=== PATIENT | male | born 1965 | race Caucasian/White ===

== ENCOUNTER 2023-06-17 08:10 | Outpatient (OUT) | payer OTHER, SELFPAY ==
[2023-06-17 08:25] LABS: Basophils Absolute Auto 0.1 10^3/uL (0.0-0.1); Eosinophils Absolute Auto 0.3 10^3/uL (0.0-0.7); Eosinophils Percent Auto 4.2 % (0.9-7.0); Hematocrit 43.5 % (42.0-54.0); Hemoglobin 14.7 g/dL (14.0-18.0); Immature Granulocytes Abs Auto 0.02 10^3/uL (0.00-0.03); Immature Granulocytes Pct Auto 0.3 % (0.0-0.5); Lymphocytes Absolute Auto 1.7 10^3/uL (1.2-3.8); Lymphocytes Percent Auto 24.9 % (20.5-60.0); Mean Corpuscular HGB Conc 33.8 g/dL (29.9-35.2); Mean Corpuscular Hemoglobin 29.6 pg (25.9-34.0); Mean Corpuscular Volume 87.5 fL (80.0-94.0); Mean Platelet Volume 11.3 fL (9.5-13.5); Monocytes Absolute Auto 0.4 10^3/uL (0.3-0.8); Monocytes Percent Auto 6.3 % (1.7-12.0); Neutrophils Absolute Auto 4.3 10^3/uL (1.4-6.5); Neutrophils Percent Auto 63.3 % (43.0-75.0); Platelet Count 229 10^3/uL (150-450); Red Blood Count 4.97 10^6/uL (4.70-6.10); Red Cell Distribution Width 12.9 % (11.0-15.0); White Blood Count 6.7 10^3/uL (4.0-11.0)
[2023-06-17 08:44] LABS: Estimated Average Glucose 260 mg/dL; Glycohemoglobin A1C 10.7 % (4.5-6.2)
[2023-06-17 10:14] LABS: Prostate Specific Antigen Scrn 0.36 ng/mL (<=4.00)
[2023-06-17 10:17] LABS: Alanine Aminotransferase 82 U/L (16-63); Albumin Globulin Ratio 0.9; Albumin Level 3.7 g/dL (3.4-5.0); Alkaline Phosphatase 59 U/L (46-116); Anion Gap 16.3; Aspartate Amino Transferase 48 U/L (15-37); BUN Creatinine Ratio 20.4; Bilirubin Total 0.7 mg/dL (0.2-1.0); Calcium 9.4 mg/dL (8.5-10.1); Carbon Dioxide 21.8 mmol/L (21.0-32.0); Chloride 102 mmol/L (98-107); Chol HDL Ratio 4.6; Cholesterol 179 mg/dL (<=200); Estimated GFR (African America >60 (>=60); Estimated GFR (Non-African Ame >60 (>=60); Globulin 4.1 g/dL; Glucose 236 mg/dL (74-106); HDL Cholesterol 39 mg/dL (40-60); Potassium 4.1 mmol/L (3.5-5.1); Sodium 136 mmol/L (136-145); Total Protein 7.8 g/dL (6.4-8.2); Triglycerides 304 mg/dL (<=150); VLDL CHOLESTEROL 60.8 mg/dL
== END 2023-06-17 08:11 | disposition home or self-care (01) ==
PROVIDERS: PCP Family Medicine; Visit Provider Family Medicine
DX: Z00.00 Encounter for general adult medical examination without abnormal findings (principal); I10 Essential (primary) hypertension; E11.65 Type 2 diabetes mellitus with hyperglycemia; Z12.5 Encounter for screening for malignant neoplasm of prostate
CPT/HCPCS: 36415; 80053; 80061; 83036; 85025; G0103

== ENCOUNTER 2023-10-06 08:56 | Outpatient (OUT) | payer OTHER, SELFPAY ==
[2023-10-06 09:24] LABS: Estimated Average Glucose 189 mg/dL; Glycohemoglobin A1C 8.2 % (4.5-6.2)
== END 2023-10-06 08:57 | disposition home or self-care (01) ==
LOC: LAB 08:58
PROVIDERS: PCP Family Medicine; Visit Provider Family Medicine
DX: E11.65 Type 2 diabetes mellitus with hyperglycemia (principal)
CPT/HCPCS: 36415; 83036

== ENCOUNTER 2024-11-30 08:14 | Outpatient (OUT) | payer OTHER, SELFPAY ==
--- OUTSIDE RECORDS SUMMARY | 2024-11-30 08:17 | XMS_ITS | CCD ---
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 Role Phone Anahy Aguirre Unavailable Kevin Garcia Unavailable TIMOTHY ANAHY E Admitting Unavailable ANAHY AGUIRRE E Attending Unavailable TIMOTHY, ANAHY E Primary Care Unavailable Brain Thomas Consulting Unavailable AGUIRRE, ANAHY E Consulting Unavailable AGUIRRE, ANAHY E Admitting Unavailable AGUIRRE, ANAHY E Attending Unavailable AGUIRRE, ANAHY E Primary Care Unavailable CAROLANN SARMIENTO Admitting Unavailable CAROLANN SARMIENTO Attending Unavailable TIMOTHY, ANAHY E Primary Care Unavailable CAROLANN SARMIENTO Consulting Unavailable AGUIRRE, ANAHY E Admitting Unavailable AGUIRRE, ANAHY E Attending Unavailable AGUIRRE, ANAHY E Primary Care Unavailable AGUIRRE, ANAHY E Consulting Unavailable AGUIRRE, ANAHY E Admitting Unavailable AGUIRRE ANAHY E Attending Unavailable AGUIRRE, ANAHY E Primary Care Unavailable AGUIRRE, ANAHY E Consulting Unavailable AGUIRRE, ANAHY E Admitting Unavailable AGUIRRE ANAHY E Attending Unavailable AGUIRRE, ANAHY E Primary Care Unavailable AGUIRRE, ANAHY E Consulting Unavailable Medications Current Medications Medication Drug Class(es) Dates Sig (Normalized) Sig (Original) 0.25 MG, 0.5 MG Dose 3 ML semaglutide 0.68 MG/ML Pen Injector [Ozempic] (1 source) Ozempic (0.25 or 0.5 MG/DOSE) 2 MG/3ML 0.25mg Subcutaneous weekly for 28 days Active Accu-Chek Guide - (1 source) Accu-Chek Guide - TEST ONCE A DAY for 30 Active Aspir-81 (3 sources) Aspir-81 Active losartan potassium 100 mg oral tablet (13 sources) Angiotensin 2 Receptor Shahla Start: 11-22-2024 take 1 tablet by mouth once daily Losartan 100 mg tablet Active 0 .ROUTE .COMPLEX 210 November 22, 2024 9:30am TAKE 1 TABLET BY MOUTH EVERY DAY Start: 11-20-2023 End: 11-22-2024 take 1 tablet by mouth once daily Losartan 100 mg tablet Discontinued 100 MG PO Daily November 21, 2023 9:49am November 22, 2024 9:30am Start: 05-19-2017 End: 11-20-2023 take 1 tablet by mouth once daily Losartan 50 mg Tablet Discontinued 50 MG PO daily May 19, 2017 12:00am November 20, 2023 4:53pm take 1 tablet by jami th every twenty-four hours Losartan Potassium 100 MG 1 tablet Orally Once a day for 90 days Active 24 hr metFORMIN hydrochloride 750 mg extended release oral tablet (12 sources) Biguanide Start: 11-20-2023 End: 11-21-2023 take 1 tablet by mouth twice daily Metformin 750 mg tablet extended release 24 hr Active 750 MG PO Twice daily 180 November 21, 2023 9:49am Start: 06-25-2021 End: 11-20-2023 take 1 tablet by mouth once daily Metformin 500 mg tablet extended release 24 hr Discontinued 500 MG PO Daily June 25, 2021 12:00am November 20, 2023 4:53pm take 1 tablet by jami th twice daily metFORMIN HCl ER 750 MG TAKE 1 TABLET BY MOUTH TWICE A DAY for 30 days Active take 1 tablet by jami th every twelve hours metFORMIN HCl 500 MG 1 tablet with a meal Orally twice a day Active ozempic (0.25 or 0.5 mg/dose) 2 mg/3ml solution pen-injector (1 source) inject 0.5 mg by subcutaneous injection every week Ozempic (0.25 or 0.5 MG/DOSE) 2 MG/3ML 0.5mg Subcutaneous weekly for 28 days Active Semaglutide (5 sources) Start: 11-07-2024 inject 0.5 mg by subcutaneous injection every week Semaglutide (Ozempic) 0.25 mg or 0.5 mg (2 mg/3 mL) pen injector Active 0 .ROUTE .COMPLEX November 07, 2024 10:04am ADMINISTER 0.5 MG UNDER THE SKIN EVERY WEEK Start: 08-14-2024 End: 11-07-2024 inject 0.5 mg by subcutaneous injection every week Semaglutide (Ozempic) 0.25 mg or 0.5 mg (2 mg/3 mL) pen injector Discontinued 0 .ROUTE .COMPLEX August 14, 2024 2:55pm November 07, 2024 10:04am ADMINISTER 0.5 MG UNDER THE SKIN EVERY WEEK Start: 08-14-2024 inject 0.5 mg by sub cutaneous injection every week Semaglutide (Ozempic) 0.25 mg or 0.5 mg (2 mg/3 mL) pen injector Active 0 .ROUTE .COMPLEX August 14, 2024 1:55pm ADMINISTER 0.5 MG UNDER THE SKIN EVERY WEEK Start: 02-05-2024 End: 08-14-2024 Semaglutide (Ozempic) 0.25 m g or 0.5 mg (2 mg/3 mL) pen injector Discontinued 0.5 MG SUBCUT every week 9.568 90 February 05, 2024 12:00am August 14, 2024 2:55pm Start: 02-05-2024 End: 08-14-2024 Semaglutide (Ozempic) 0.25 m g or 0.5 mg (2 mg/3 mL) pen injector Discontinued 0.5 MG SUBCUT every week 9.568 90 February 04, 2024 11:00pm August 14, 2024 1:55pm Completed/Discontinued Medications Medication Drug Class(es) Dates Sig (Normalized) Sig (Original) pantoprazole 40 mg delayed release oral tablet (14 sources) Proton Pump Inhibitor Start: 09-05-2018 End: 09-26-2024 take 1 tablet by mouth once daily Pantoprazole 40 mg tablet,delayed release (DR/EC) Discontinued 40 MG PO Daily June 25, 2021 12:00am May 30, 2024 10:24am Problems Problem Classification Problem Date Documented Da te Episodic/Chronic Diabetes mellitus with complications (11 sources) Hyperglycemia due to type 2 diabetes mellitus; Translations: [Type 2 diabetes mellitus with hyperglycemia] Chronic Diabetes mellitus without complication (6 sources) Type 2 diabetes mellitus; Translations: [Type 2 diabetes mellitus without complications] Chronic Esophageal disorders (12 sources) Gastroesophageal reflux disease; Translations: [Gastro-esophageal reflux disease without esophagitis] Chronic Comment on above: Problem List clean-u p per request of Phys. EHR Cmte Essential hypertension (14 sources) Essential hypertension; Translations: [Essential (primary) hypertension] Onset: Chronic Comment on above: Problem List clean-u p per request of Phys. EHR Cmte Nonspecific chest pain (10 sources) Chest pain; Translations: [Chest pain, unspecified] Onset: 2 Episodic Other and ill-defined heart disease (1 source) Cardiomegaly; Translations: [CARDIOMEGALY] Onset: 2 Chronic Other and unspecified benign neoplasm (6 sources) History of polyp of colon; Translations: [Personal history of colonic polyps] Episodic Other connective tissue disease (1 source) Other symptoms and signs involving the musculoskeletal system Episodic Other gastrointestinal disorders (8 sources) Dysphagia; Translations: [Dysphagia, unspecified] 08-30-2023 Episodic Comment on above: Problem List clean-u p per request of Phys. EHR Cmte Other gastrointestinal disorders (1 source) Dysphagia, unspecified; Translations: [Dysphagia, unspecified] 09-26-2024 Episodic Other nutritional; endocrine; and metabolic disorders (6 sources) Body mass index 40+ - severely obese; Translations: [Body mass index (BMI) 45.0-49.9, adult] Chronic Other screening for suspected conditions (not mental disorders or infectious disease) (13 sources) Cardiovascular stress test abnormal; Translations: [Abnormal result of other cardiovascular function study] Onset: 2 Episodic Residual codes; unclassified (6 sources) Obstructive sleep apnea syndrome; Translations: [Obstructive sleep apnea (adult) (pediatric)] Chronic Residual codes; unclassified (5 sources) Obstructive sleep apnea (adult) (pediatric); Translations: [OBSTRUCTIVE SLEEP APNEA] Onset: 3 Chronic Residual codes; unclassified (2 sources) Family history of cancer of colon; Translations: [Family history of malignant neoplasm of digestive organs] 08-30-2023 Episodic Comment on above: Problem List clean-u p per request of Phys. EHR Cmte Residual codes; unclassified (1 source) Family history of malignant neoplasm of digestive organs; Translations: [Family history of malignant neoplasm of gastrointestinal tract] 09-26-2024 Episodic Results Test Name Value Interpretation Reference Range Facility ECHOCARDIO M/2D COMPLETEon 0 04-13-2022 ECHOCARDIO M/2D COMPLETE Patient: CHARLES OSPINA Exam Date: 04/13/2022 : 1965 Gender:M Ordering : CAROLANN SARMIENTO [facility] Admission #: [id number] Family : DR ANAHY AGUIRRE M.D. Order #: [id number] CLICK HERE TO VIEW EXAM ECHOCARDIOGRAM REPORT PROCEDURE: CARDIO PULMONARY ECHOCARDIO M/2D COMP INDICATIONS: Abnormal stress test, HTN COMPARISON: None. DESCRIPTION: COMPLETE ECHOCARDIOGRAM Real-time transthoracic echocardiography with 2D, M-mode, spectral and color flow Doppler performed. QUALITY: Technical quality was limited. 70 329# 132/68 HR 73 LEFT VENTRICLE: Normal chamber size. Mild concentric left ventricular hypertrophy. Global left ventricular systolic function is normal. LV EF: Visual estimation of left ventricular ejection fraction is 55-60%. DIASTOLIC: Normal diastolic function. ATRIAL SEPTUM: LEFT ATRIUM: Normal chamber size. RIGHT ATRIUM: Normal chamber size. RIGHT VENTRICLE: Mild dilatation. Normal right ventricular systolic function. TRICUSPID VALVE: Normal mobility and thickness. No stenosis with trivial regurgitation. No evidence of pulmonary hypertension. RVSP 25 mmHg MITRAL VALVE: Normal mobility and thickness. No evidence of mitral valve stenosis. Mild mitral annular calcification. Trivial mitral regurgitation. AORTIC VALVE: Normal trileaflet appearance. No evidence of aortic valve stenosis. No aortic regurgitation. AORTIC ROOT: Normal diameter and appearance. Aortic sinuses are normal in size for BSA. Ascending aorta is normal in size. PULMONIC VALVE: Normal thickness and mobility. No stenosis. Trivial regurgitation. PERICARDIUM: No evidence of pericardial effusion. IVC: Not well visualized. PLEURA: CONCLUSION: 1. Mild concentric left ventricular hypertrophy. Normal ventricular systolic function. LVEF is 55 to 60%. 2. The right ventricle is mildly dilated with normal systolic function. 3. Normal diastolic function. 4. No significant valvular dysfunction. 5. Normal right-sided pressures. Adult Echocardiography Procedure Report Left Ventricle Left Atrium Mitral Valve Right Ventricle Aorta Aortic Valve Peak Velocity (Antegrade Flow): 1.25 m/s AoV Area (Peak Clyde): 3.54 cm2, 3.54 cm2 Peak Velocity(Antegrade Flow): 1.25 m/s Peak Gradient(Antegrade Flow): 6.24 mm[Hg] Tricuspid Valve Peak Velocity (Regurgitant Flow): 2.39 m/s Peak Velocity: 0.52 m/s Pulmonic Valve PV Max Clyde (0.6 - 0.9 m per sec): 1.10 m/s PV Max Gradient: 4.83 mm[Hg] Right Atrium Dictated by: Jose Enrique Hogan M.D. on 04/13/2022 at 16:34 Approved by: Jose Enrique Hogan M.D. on 04/13/2022 at 16:37 Normal [facility] NM STRESS/REST MULTIon 03-23 NM STRESS/REST MULTI Patient: CHARLES OSPINA Exam Date: 03/23/2022 : 1965 Gender:M Ordering : DR ANAHY AGUIRRE M.D. Admission #: [id number] Family : Order #: [id number] CLICK HERE TO VIEW EXAM RADIOLOGY REPORT PROCEDURE: RADIONUCLIDE IMAGING STRESS/REST MULTI COMPARISON: None. INDICATIONS: Chest pain TECHNIQUE: Exam Description: Stress/Rest two day protocol gated SPECT Rest Imagin.1 mCi Tc-99m Cardiolite IV on 03/23/2022 Stress Imaging 24.5 mCi Tc-99m Cardiolite IV on 03/24/2022 Exercise Protocol: Simeon Heart Rate (bpm): Rest: 90 Max: 146 PMHR: 88 Blood Pressure: Rest: 148/100 Max: 182/108 Exercise Time: Minutes: 4 Seconds: 00 Stage Reached: Stage: 2 Mets 7.0 Symptoms: Rest and peak stress ECG findings were normal and the exercise portion of the study was normal per attending physician Dr. Ramana Echevarria . For more details please see separate cardiac stress test report. FINDINGS: QUALITY OF STUDY: Excellent. PERFUSION DEFECT: LOCATION: Apical inferior. SIZE: Small (1-2 segments). SEVERITY: Moderate. TYPE: Persistent. WALL MOTION: Normal. LV SIZE: Enlarged; EDV 136 mL. TID / TCD: None; 0.9 LVEF: Abnormal. Calculated EF 52%. SUMMARY: Myocardial perfusion imaging study has ABNORMAL findings. CONCLUSION: 1. No acute or reversible ischemia. 2. Fixed perfusion defect of the apically inferior wall. 3. Left ventriculomegaly, 136 mL. 4. Low ejection fraction, 52%. 5. Normal wall motion. Dictated by: Brain Thomas M.D. on 03/24/2022 at 15:44 Approved by: Brain Thomas M.D. on 03/24/2022 at 15:52 Normal [facility] CBC AUTO DIFFon 02-11-2022 BASO # 0.1 103/ul Normal 0.0-0.1 [facility] Comment on above: Performed By: #### C BC #### [facility] [address] [place] [address] Dr. Nehemiah Dsouza Basophils/100 WBC (Bld) 0.9 % Normal 0.2-2.0 [facility] Comment on above: Performed By: #### C BC #### [facility] [address] [place] [address] Dr. Nehemiah Dsouza EO # 0.3 103/ul Normal 0.0-0.7 [facility] Comment on above: Performed By: #### C BC #### [facility] [address] [place] [address] Dr. Nehemiah Dsouza Eosinophils/100 WBC (Bld) 4.3 % Normal 0.9-7.0 [facility] Comment on above: Performed By: #### C BC #### [facility] [address] [place] [address] Dr. Nehemiah Dsouza Erythrocyte distribution width (RBC) [Ratio] 13.8 % Normal 11.0-15.0 [facility] Comment on above: Performed By: #### C BC #### [facility] [address] [place] [address] Dr. Nehemiah Dsouza Hematocrit (Bld) [Volume fraction] 46.3 % Normal 42.0-54.0 [facility] Comment on above: Performed By: #### C BC #### [facility] [address] [place] [address] Dr. Nehemiah Dsouza Hemoglobin (Bld) [Mass/Vol] 14.9 g/dL Normal 14.0-18.0 [facility] Comment on above: Performed By: #### C BC #### [facility] [address] [place] [address] Dr. Nehemiah Dsouza IG # 0.03 10e3/ul Normal 0.00-0.03 [facility] Comment on above: Performed By: #### C BC #### [facility] [address] [place] [address] Dr. Nehemiah Dsouza IG % 0.4 % Normal 0.0-0.5 [facility] Comment on above: Performed By: #### C BC #### [facility] [address] [place] [address] Dr. Nehemiah Dsouza LYMPH # 1.9 103/ul Normal 1.2-3.8 [facility] Comment on above: Performed By: #### C BC #### [facility] [address] [place] [address] Dr. Nehemiah Dsouza Lymphocytes/100 WBC (Bld) 24.3 % Normal 20.5-60.0 [facility] Comment on above: Performed By: #### C BC #### [facility] [address] [place] [address] Dr. Nehemiah Dsouza MANUAL DIFF REQ NO Normal [facility] Comment on above: Performed By: #### C BC #### [facility] [address] [place] [address] Dr. Nehemiah Dsouza MCH (RBC) [Entitic mass] 28.6 pg Normal 25.9-34.0 [facility] Comment on above: Performed By: #### C BC #### [facility] [address] [place] [address] Dr. Nehemiah Dsouza MCHC (RBC) [Mass/Vol] 32.2 g/dL Normal 29.9-35.2 [facility] Comment on above: Performed By: #### C BC #### [facility] [address] [place] [address] Dr. Nehemiah Dsouza MCV (RBC) [Entitic vol] 88.9 fL Normal 80.0-94.0 [facility] Comment on above: Performed By: #### C BC #### [facility] [address] [place] [address] Dr. Nehemiah Dsouza MONO # 0.6 103/ul Normal 0.3-0.8 [facility] Comment on above: Performed By: #### C BC #### [facility] [address] [place] [address] Dr. Nehemiah Dsouza Monocytes/100 WBC (Bld) 7.6 % Normal 1.7-12.0 [facility] Comment on above: Performed By: #### C BC #### [facility] [address] [address] [address] Nehemiah Dsouza NEUT # 5.0 103/ul Normal 1.4-6.5 [facility] Comment on above: Performed By: #### C BC #### [facility] [address] [address] [address] Nehemiah Dsouza Neutrophils/100 WBC (Bld) 62.5 % Normal 43.0-75.0 [facility] Comment on above: Performed By: #### C BC #### [facility] [address] [place] [address] Dr. Nehemiah Dsouza Platelet mean volume (Bld) [Entitic vol] 10.9 fL Normal 9.5-13.5 [facility] Comment on above: Performed By: #### C BC #### [facility] [address] [place] [address] Dr. Nehemiah Dsouza PLT 259 103/ul Normal 150-450 [facility] Comment on above: Performed By: #### C BC #### [facility] [address] [place] [address] Dr. Nehemiah Dsouza RBC 5.21 106/ul Normal 4.70-6.10 [facility] Comment on above: Performed By: #### C BC #### [facility] [address] [place] [address] Dr. Nehemiah Dsouza WBC 7.9 103/ul Normal 4.0-11.0 [facility] Comment on above: Performed By: #### C BC #### [facility] [address] [place] [address] Dr. Nehemiah Dsouza GLYCOHEMOGLOBIN A1Con 2021 ADA RECOMMENDATION SEE BELOW Normal [facility] Comment on above: Result Comment: ADA RECOMMENDED LIMIT 4.0 - 6.0 ADA THERAPEUTIC TARGET < 7.0 ACTION SUGGESTED > 7.0 Performed By: #### A 1C #### [facility] [address] [place] [address] Dr. Nehemiah Dsouza Glucose [Mass/Vol] 146 mg/dL Normal [facility] Comment on above: Performed By: #### A 1C #### [facility] [address] [address] [address] Nehemiah Dsouza HbA1c (Bld) [Mass fraction] 6.7 % Critically high 4.5-6.2 [facility] Comment on above: Performed By: #### A 1C #### [facility] [address] [place] [address] Dr. Nehemiah Dsouza LIPID PROFILEon 02-11-2022 CHOL-HDL RATIO NORM SEE BELOW Normal [facility] Comment on above: Result Comment: 3.3 - 4.4 LOW RISK 4.4 - 7.1 AVERAGE RISK 7.1 - 11.0 MODERATE RISK >11.0 HIGH RISK Performed By: #### L IPID, CMP #### [facility] [address] [place] [address] Dr. Nehemiah Dsouza Cholesterol [Mass/Vol] 173 mg/dL Normal <=200 [facility] Comment on above: Performed By: #### L IPID, CMP #### [facility] [address] [place] [address] Dr. Nehemiah Dsouza Cholesterol in HDL [Mass/Vol] 44 mg/dL Normal 40-60 [facility] Comment on above: Performed By: #### L IPID, CMP #### [facility] [address] [place] [address] Dr. Nehemiah Dsouza Cholesterol in LDL [Mass/Vol] 99.0 mg/dL Normal [facility] Comment on above: Performed By: #### L IPID, CMP #### [facility] [address] [address] [address] Nehemiah Dsouza Cholesterol.total/Ch olesterol in HDL [Mass ratio] 3.9 {ratio} Normal [facility] Comment on above: Performed By: #### L IPID, CMP #### [facility] [address] [place] [address] Dr. Nehemiah Dsouza HDL NORMAL > or = 60 mg/dl - LO W CARDIOVASCULAR RISK <40 mg/dl - HIGH CARDIOVASCULAR RISK Normal [facility] Comment on above: Performed By: #### L IPID, CMP #### [facility] [address] [place] [address] Dr. Nehemiah Dsouza LDL CALC NORMAL SEE BELOW Normal [facility] Comment on above: Result Comment: <100 mg/dl OPTIMAL 100 - 129 mg/dl NEAR OR ABOVE OPTIMAL 130 - 159 mg/dl BORDERLINE HIGH 160 - 189 mg/dl HIGH >190 mg/dl VERY HIGH Performed By: #### L IPID, CMP #### [facility] [address] [address] [address] Nehemiah Dsouza Triglyceride [Mass/Vol] 150 mg/dL Normal <=150 [facility] Comment on above: Performed By: #### L IPID, CMP #### [facility] [address] [address] [address] Nehemiah Dsouza VLDL CALC 30.0 mg/dL Normal [facility] Comment on above: Performed By: #### L IPID, CMP #### [facility] [address] [place] [address] Dr. Nehemiah Dsouza PROF 14(COMP METB)on 022 Albumin [Mass/Vol] 3.9 g/dL Normal 3.4-5.0 [facility] Comment on above: Performed By: #### L IPID, CMP #### [facility] [address] [address] [address] Nehemiah Dsouza Albumin/Globulin [Mass ratio] 1.0 {ratio} Normal [facility] Comment on above: Performed By: #### L IPID, CMP #### [facility] [address] [address] [address] Nehemiah Dsouza ALP [Catalytic activity/Vol] 58 U/L Normal 46-116 [facility] Comment on above: Performed By: #### L IPID, CMP #### [facility] [address] [address] [address] Nehemiah Dsouza ALT [Catalytic activity/Vol] 75 U/L Critically high 16-63 [facility] Comment on above: Performed By: #### L IPID, CMP #### [facility] [address] [address] [address] Nehemiah Dsouza Anion gap [Moles/Vol] 9.9 mmol/L Normal [facility] Comment on above: Performed By: #### L IPID, CMP #### [facility] [address] [address] [address] Nehemiah Dsouza AST [Catalytic activity/Vol] 38 U/L Critically high 15-37 [facility] Comment on above: Performed By: #### L IPID, CMP #### [facility] [address] [place] [address] Dr. Nehemiah Dsouza Bilirubin [Mass/Vol] 0.8 mg/dL Normal 0.2-1.0 [facility] Comment on above: Performed By: #### L IPID, CMP #### [facility] [address] [place] [address] Dr. Nehemiah Dsouza Calcium [Mass/Vol] 9.3 mg/dL Normal 8.5-10.1 [facility] Comment on above: Performed By: #### L IPID, CMP #### [facility] [address] [place] [address] Dr. Nehemiah Dsouza Chloride [Moles/Vol] 102 mmol/L Normal 98-107 [facility] Comment on above: Performed By: #### L IPID, CMP #### [facility] [address] [place] [address] Dr. Nehemiah Dsouza CO2 [Moles/Vol] 30.6 mmol/L Normal 21.0-32.0 [facility] Comment on above: Performed By: #### L IPID, CMP #### [facility] [address] [place] [address] Dr. Nehemiah Dsouza Creatinine [Mass/Vol] 1.00 mg/dL Normal 0.70-1.30 [facility] Comment on above: Performed By: #### L IPID, CMP #### [facility] [address] [place] [address] Dr. Nehemiah Dsouza EGFR-AF FIJIAN >60 Normal >=60 [facility] Comment on above: Performed By: #### L IPID, CMP #### [facility] [address] [place] [address] Dr. Nehemiah Dsouza EGFR-NON AF FIJIAN >60 Normal >=60 [facility] Comment on above: Performed By: #### L IPID, CMP #### [facility] [address] [address] [address] Nehemiah Dsouza Globulin (S) [Mass/Vol] 4.0 g/dL Normal [facility] Comment on above: Performed By: #### L IPID, CMP #### [facility] [address] [address] [address] Nehemiah Dsouza Glucose [Mass/Vol] 128 mg/dL Critically high 74-106 [facility] Comment on above: Performed By: #### L IPID, CMP #### [facility] [address] [address] [address] Nehemiah Dsouza Potassium [Moles/Vol] 4.5 mmol/L Normal 3.5-5.1 [facility] Comment on above: Performed By: #### L IPID, CMP #### [facility] [address] [place] [address] Dr. Nehemiah Dsouza Protein [Mass/Vol] 7.9 g/dL Normal 6.4-8.2 [facility] Comment on above: Performed By: #### L IPID, CMP #### [facility] [address] [address] [address] Nehemiah Dsouza Sodium [Moles/Vol] 138 mmol/L Normal 136-145 [facility] Comment on above: Performed By: #### L IPID, CMP #### [facility] [address] [address] [address] Nehemiah Dsouza Urea nitrogen [Mass/Vol] 21.0 mg/dL Critically high 7.0-18.0 [facility] Comment on above: Performed By: #### L IPID, CMP #### [facility] [address] [address] [address] Nehemiah Dsouza Urea nitrogen/Creatinine [Mass ratio] 21.0 mg/mg [place] [facility] Comment on above: Performed By: #### L IPID, CMP #### [facility] [address] [place] [address] Dr. Nehemiah Dsouza Glucose Poct Glucometerson 1 Commemt1 Glu2: Cleaned Meter Normal [facility] Comment on above: Result Comment: PERF ORMED BY: [facility] [place] [address] PATHOLOGIST DIRECTOR FACILITIES MAINTENANCE MONET TRAMMELL M.D. Performed By: #### G HALLIE #### Point of Care testing , Glucose [Mass/Vol] 165 mg/dL Normal [facility] Comment on above: Result Comment: [facility] Glucose Reference Range is dependent on time and content of last meal. Glucose of more than 200 mg/dL in a nonstressed, ambulatory subject supports the diagnosis of Diabetes Mellitus. Performed By: #### G LUPAOLA #### Point of Care testing , Baron 06-28-2021 L - -------- Specimen: [id number] Received: 06/28/21 Status: HELENA Gaytan Num: [id number] Spec Type: Surgical Subm Dr: Cameron Jarvis Jr, DO Tissues: A Colon - Polyp (DESCENDING POLYPS) Procedures: HE Stain/2, Gross/Micro L4 -------- Patient Age/Sex Location Account Attending Physician -------- Charles [facility]sp[facility] [id number] Cameron Jarvis Jr, DO -------- SPEC NUM: [id number] RECD: 06/28/21 STATUS: HELENA GAYTAN NUM: [id number] KATHY: 06/28/[address] [facility] DR: Cameron Jarvis Jr, ENTERED: 06/28/[address]: BOBBI TYPE: Surgical DEPT: S ORDERED: HE Stain/2, Gross/Micro L4 ORDERED: HE Stain/2, Gross/Micro L4 Pathological Diagnosis Descending colon, biopsy: - Tubular adenoma Clinical Information Family history of colon cancer Gross Description Received in formalin labeled with the patient's name, number and descending colon polyp biopsy are 3 hdez-pink tissue fragments, 0.4 cm each. Entirely submitted in one cassette labeled A1. (SM/JS) Microscopic Description Two glass slides with H E stained material have been examined. The microscopic findings support the above pathologic diagnosis. [id number] -------- -------- Specimen: [id number] Received: 06/28/21 Status: HELENA Gaytan Num: [id number] Spec Type: Surgical Subm Dr: Cameron Jarvis Jr, DO Tissues: A Colon - Polyp (DESCENDING POLYPS) Procedures: HE Stain/2, Gross/Micro L4 -------- Patient: NaomifedericaCharles [id number] (Continued) -------- Signed (signature on file) Monet Trammell MD 06/29/21 1239 [facility] COVID-19 Antigenon 1 COVID-19 Antigen Healthcare Worker?: N Concha Reference Conhca Reference Negative SARS-CoV+SARS-CoV-2 (COVID-19) Ag [Presence] in Respiratory specimen by Rapid immunoassay Negative for SARS Antigen by FREEMAN COVID19 Blank Space Concha Disclaimer Negative results, from patients with symptom Concha Disclaimer onset beyond five days, should be treated as Concha Disclaimer presumptive and confirmation with a molecular Concha Disclaimer assay, if necessary, for patient management, Concha Disclaimer may be performed. Negative results do not rule Concha Disclaimer out COVID-19 and should not be used as the sole Concha Disclaimer basis for treatment or patient management Concha Disclaimer decisions, including infection control decisions. Concha Disclaimer Negative results should be considered in the Concha Disclaimer context of a patient's recent exposures, history Concha Disclaimer and the presence of clinical signs and symptoms Concha Disclaimer consistent with COVID-19. COVID19 Blank Space Concha Disclaimer The Concha SARS Antigen FREEMAN does not differentiate Concha Disclaimer between SARS-CoV and SARS-CoV-2. COVID19 Blank Space Concha Disclaimer This test was developed and its performance Concha Disclaimer characteristic determined by [facility] and Concha Disclaimer validated at [facility]. This Concha Disclaimer test has not been FDA cleared or approved. This Concha Disclaimer test has been authorized by FDA under an Emergency Use Concha Disclaimer Authorization (EUA). This test has been validated Concha Disclaimer in accordance with the FDA's Guidance Document (Policy Concha Disclaimer for Diagnostics Testing in Laboratories Certified to Concha Disclaimer Perform High Complexity Testing under CLIA prior to Concha Disclaimer Emergency Use Authorization for Coronavirus Concha Disclaimer iseas during the Public Health Emergency) Concha Disclaimer issued on December 19, 2019. This test is only authorized Concha Disclaimer for the duration of time the declaration that Concha Disclaimer circumstances exist justifying the authorization of Concha Disclaimer the emergency use of in vitro diagnostic tests for Concha Disclaimer detection of SARS-CoV-2 virus and/or diagnosis of Concha Disclaimer COVID-19 infection under section 564(b)(1) of the Concha Disclaimer Act, 21 U.S.C. 360bbb-3(b)(1), unless the Concha Disclaimer authorization is terminated or revoked sooner. PERFORMED BY: [place] [address] PATHOLOGIST DIRECTOR FACILITIES MAINTENANCE MONET TRAMMELL M.D. Normal [facility] Comment on above: Performed By: #### C OVID-19 CONCHA, SOFIANEG #### [address] [address] [facility] Concha Ag Negativeon 06-24-20 Concha Ag Negative Negative Normal Negative [facility] Comment on above: Result Comment: This is a duplicate Concha SARS Antigen (FREEMAN) result to be used for statistical tracking purpose only. PERFORMED BY: [place] [address] PATHOLOGIST DIRECTOR FACILITIES MAINTENANCE MONET TRAMMELL M.D. Performed By: #### C OVID-19 CONCHA, SOFIANEG #### [address] [address] [facility] Vital Signs Date Time Vital Sign Value Performing Clinician Facility 11-25-2024 15:29-0400 Body height 177.8 cm [facility] 11-25-2024 15:29-0400 Body mass index (BMI) [Ratio] 43.9 kg/m2 [facility] 11-25-2024 15:29-0400 Body weight 138.79 kg [facility] 11-25-2024 15:29-0400 Diastolic blood pressure 88 mm[Hg] [facility] 11-25-2024 15:29-0400 Heart rate 93 /min [facility] 11-25-2024 15:29-0400 Systolic blood pressure 116 mm[Hg] [facility] 09-26-2024 13:39-0500 Body height 177.8 cm [facility] 09-26-2024 13:39-0500 Body mass index (BMI) [Ratio] 44 kg/m2 [facility] 09-26-2024 13:39-0500 Body weight 139.25 kg [facility] 09-26-2024 13:39-0500 Diastolic blood pressure 69 mm[Hg] [facility] 09-26-2024 13:39-0500 Heart rate 88 /min [facility] 09-26-2024 13:39-0500 Systolic blood pressure 123 mm[Hg] [facility] 10-06-2023 08:30-0500 Body height 177.8 cm Anahy Aguirre Other [facility] Other 10-06-2023 08:30-0500 Body mass index (BMI) [Ratio] 45.19 kg/m2 Anahy Aguirre Other [facility] Other 10-06-2023 08:30-0500 Body weight 142.88 kg Anahy Aguirre Other [facility] Other 10-06-2023 08:30-0500 Diastolic blood pressure 72 mm[Hg] Anahy Aguirre Other [facility] Other 10-06-2023 08:30-0500 Systolic blood pressure 128 mm[Hg] Anahy Aguirre Other [facility] Other 03-14-2023 15:30-0400 Body height 177.8 cm Kevin Garcia Other [facility] Other 03-14-2023 15:30-0400 Body mass index (BMI) [Ratio] 46.91 kg/m2 Kevin Garcia Other [facility] Other 03-14-2023 15:30-0400 Body weight 148.33 kg Kevin Garcia Other [facility] Other 03-14-2023 15:30-0400 Diastolic blood pressure 70 mm[Hg] Kevin Garcia Other [facility] Other 03-14-2023 15:30-0400 Systolic blood pressure 114 mm[Hg] Kevin Garcia Other [facility] Other 11-22-2022 15:30-0500 Body height 177.8 cm Anahy Aguirre Other [facility] Other 11-22-2022 15:30-0500 Body mass index (BMI) [Ratio] 48.06 kg/m2 Anahy Aguirre Other [facility] Other 11-22-2022 15:30-0500 Body weight 151.96 kg Anahy Aguirre Other [facility] Other 11-22-2022 15:30-0500 Diastolic blood pressure 88 mm[Hg] Anahy Aguirre Other [facility] Other 11-22-2022 15:30-0500 SaO2% (BldA) [Mass fraction] 97 % Anahy Aguirre Other [facility] Other 11-22-2022 15:30-0500 Systolic blood pressure 140 mm[Hg] Anahy Aguirre Other [facility] Other Encounters Encounter Date Encounter Type Care Provider Facility Start: 11-25-2024 Patient encounter status [facility] Start: 11-25-2024 End: 11-25-2024 ambulatory [facility] Work Phone: Start: 11-25-2024 End: 11-25-2024 Encounter for general adult medical examination without abnormal findings [facility] Start: 11-25-2024 End: 11-25-2024 Patient encounter procedure [facility] Work Phone: Start: 09-26-2024 End: 09-26-2024 ambulatory [facility] Work Phone: Start: 09-26-2024 End: 09-26-2024 Patient encounter procedure [facility] Work Phone: Start: 10-06-2023 End: 10-06-2023 ambulatory Anahy Aguirre Other [facility] Other Start: 10-06-2023 Office outpatient visit 15 minutes Anahy Aguirre [facility] Start: 06-20-2023 End: 06-20-2023 ambulatory Anahy Aguirre Other [facility] Other Start: 06-20-2023 Telephone encounter Anahy Aguirre [facility] Start: 06-13-2023 End: 06-13-2023 ambulatory Anahy Aguirre Other [facility] Other Start: 06-13-2023 Telephone encounter Anahy Aguirre [facility] Start: 03-14-2023 End: 03-14-2023 ambulatory Kevin Garcia Other [facility] Other Start: 03-14-2023 Office outpatient visit 25 minutes Kevin Garcia [facility] Start: 12-26-2022 End: 12-27-2022 ambulatory ANAHY AGUIRRE Facility:[facility] Start: 12-06-2022 End: 12-07-2022 ambulatory ANAHY AGUIRRE Facility:[facility] Start: 11-30-2022 End: 11-30-2022 ambulatory Kevin Garcia Other [facility] Other Start: 11-30-2022 Telephone encounter Kevin delgado [facility] Start: 11-22-2022 End: 11-22-2022 ambulatory Anahy Aguirre Other [facility] Other Start: 11-22-2022 Office outpatient visit 15 minutes Anahy Aguirre [facility] Start: 04-13-2022 End: 04-14-2022 ambulatory CAROLANN SARMIENTO Facility:[facility] Start: 03-24-2022 End: 03-25-2022 ambulatory ANAHY AGUIRRE Facility:[facility] Start: 03-23-2022 End: 03-24-2022 ambulatory ANAHY AGUIRRE Facility:[facility] Start: 02-18-2022 Encounter for genera l adult medical examination without abnormal findings ANAHY AGUIRRE [facility] Start: 02-11-2022 Adult health examination Anahy Timothy Other [facility] Other Start: 02-11-2022 End: 02-12-2022 ambulatory ANAHY AGUIRRE Facility:[facility] Start: 02-11-2022 End: 02-12-2022 Encounter for general adult medical examination without abnormal findings ANAHY Landers TIMOTHY Facility:[facility] Procedures Date Procedure Procedure Detail Performing Clinician Start: 02-11-2022 PSA screening ANAHY VILLA Comment on above: Performed By: #### P [facility] #### [facility] [address] [place] [address] Dr. Nehemiah Dsouza Hyperlipidemia screening Ivette Aguirre Other Plan of Treatment Date Care Activity Detail Author Comprehensive metabo lic 2000 panel - Serum or Plasma [facility] Immunizations Immunization Date Immunization Notes Care Provider Fa cility 08-27-2022 influenza virus vaccine, split virus (incl. purified surface antigen) Anahy Aguirre Other [facility] Other 08-27-2022 influenza virus vaccine, unspecified formulation [facility] 05-25-2022 COVID-19 Pfizer (Pediatric) Anahy Aguirre Other [facility] 08-19-2021 COVID-19 Vaccine Pfi zer - Documentation Purposes Only Anahy Aguirre Other [facility] 06-24-2021 influenza virus vaccine, split virus (incl. purified surface antigen) Anahy Aguirre Other [facility] Other 06-24-2021 influenza virus vaccine, unspecified formulation [facility] 06-01-2021 zoster vaccine, live Anahy Aguirre Other [facility] 02-03-2021 zoster vaccine, live Anahy Aguirre Other [facility] 01-07-2021 COVID-19 mRNA, Comirnaty (Pfizer) [facility] 12-17-2020 COVID-19 mRNA, Comirnaty (Pfizer) [facility] Payers Date Payer Category Payer Unknown [id number] 2.16.84 [id number] 1965 Unknown [id number] 2.16.84 [id number] 1966 Unknown [id number] 2.16.84 [id number] 1966 Unknown [id number] 2.16.84 [id number] 1966 Unknown [id number] 2.16.84 [id number] 1966 Unknown [id number] 2.16.84 [id number] 1959 Unknown [id number] 1959 Unknown [id number] Unknown [facility] [id number] Social History Date Type Detail Facility Unknown if ever smoked [facility] Other Sex Assigned At Sex Assigned At Bir th [facility] Other Start: 10-06-2023 End: 10-06-2023 Tobacco smoking status NHIS Never smoked tobacco (finding) [facility] Start: 09-26-2024 End: 11-25-2024 Sex Male (finding) [facility] Start: 1965 Sex Assigned At Male F [facility] Procedure Code Equipment Code Equipment Origin al Text Equipment Identifier Dates Accu-Chek Softcl ix Lancets - Blood Sugar Diagnostic (Accu-Chek Guide Test Strips) strip Start: 11-21-2023 Lancets (Accu-Ch ek Softclix Lancets) misc Start: 02-23-2024 Blood Sugar Diagnostic (Accu-Chek Guide Test Strips) strip Start: 11-20-2023 End: 11-21-2023 Lancets (Accu-Ch ek Softclix Lancets) misc Start: 11-20-2023 End: 11-21-2023 Lancets (Accu-Ch ek Softclix Lancets) misc Start: 11-21-2023 End: 02-23-2024 Blood Sugar Diagnostic (Accu-Chek Guide Test Strips) strip Start: 11-07-2024 Lancets (Accu-Ch ek Softclix Lancets) misc Start: 11-07-2024 Blood Sugar Diagnostic (Accu-Chek Guide Test Strips) strip Start: 11-20-2023 End: 11-21-2023 Blood Sugar Diagnostic (Accu-Chek Guide Test Strips) strip Start: 11-21-2023 End: 11-07-2024 Lancets (Accu-Ch ek Softclix Lancets) misc Start: 02-23-2024 End: 11-07-2024 Lancets (Accu-Ch ek Softclix Lancets) misc Start: 11-20-2023 End: 11-21-2023 Lancets (Accu-Ch ek Softclix Lancets) misc Start: 11-21-2023 End: 02-23-2024 Evaluation note 09-26-2024 Note Date & Type Note Facility 09-26-2024 Evaluation note Diagnosis Onset Date Resolution GERD (gastroesophageal reflux disease) acute September 26 1:26pm Benign esophageal stricture inactive September 26 1:26pm Family history of colon cancer inactive September 26 1:26pm GERD (gastroesophageal reflux disease) acute November 25, 2024 3:27pm Hypertension acute November 25, 2024 3:27pm Screening PSA (prostate specific antigen) acute November 25 3:27pm Type 2 diabetes mellitus with hyperglycemia acute November 25, 025 3:27pm Wellness examination acute 2024 3:27pm [facility] Work Phone: Evaluation note 10-06-2023 Note Date & Type Note Facility 10-06-2023 Evaluation note Encounter Date Diagnosis Assessment Notes Sep, Hyperglycemia due to type 2 diabetes mellitus (ICD-10 - E11.65) Increased doses of both. Followup in 3 months. Discussed exercise benefits. Sep, Weakness of both hands (ICD-10 - R29.898) Symptoms not c/w carpal tunner or OA - no pain or paresthesias. DIscussed strengthening exercises. Offered OT order in the future if problem persists. [facility] Other Evaluation note 06-20-2023 Note Date & Type Note Facility 06-20-2023 Evaluation note Encounter Date Diagnosis Assessment Notes Jun, Hyperglycemia due to type 2 diabetes mellitus (ICD-10 - E11.65) [facility] Other Evaluation note 06-13-2023 Note Date & Type Note Facility 06-13-2023 Evaluation note Encounter Date Diagnosis Assessment Notes May, Essential (primary) hypertension (ICD-10 - I10) [facility] Other Evaluation note 03-14-2023 Note Date & Type Note Facility 03-14-2023 Evaluation note Encounter Date Diagnosis Assessment Notes Feb, GERD (gastroeso phageal reflux disease) (ICD-10 - K21.9) Continue pantoprazole 40 mg daily Rto 2 yrs [facility] Other Evaluation note 11-22-2022 Note Date & Type Note Facility 11-22-2022 Evaluation note Encounter Date Diagnosis Assessment Notes Nov, INGRID (obstructive sleep apnea) (ICD-10 - G47.33) Handwrote referral to [facility]. Nov, Hyperglycemia due to type 2 diabetes mellitus (ICD-10 - E11.65) Reviewed home glucose levels. They are acceptable. Continue present meds. Nov, Essential hypertension (ICD-10 - I10) Reviewed home BPs. They are moderately elevated but should improve with treatment of his INGRID. Will monitor and continue present meds. [facility] Other Evaluation note Note Date & Type Note Facility Evaluation note No Information [facility] [employer] Other Evaluation note Note Date & Type Note Facility Evaluation note Diagnosis Onset Date Resolution Dysphagia inactive September 26 1:26pm [facility] Work Phone: History general Narrative - Reported Note Date & Type Note Facility History general Narrative - Reported Type Medical History Body mass index [BMI] 45.0-49.9, adult Medical History Abnormal stress test Medical History Type 2 diabetes mellitus Medical History Essential hypertension Medical History Chest pain Medical History Screening for hyperlipidemia Medical History Hyperglycemia due to type 2 diabetes mellitus Surgical History TUBULAR ADENOMA - C- SCOPE 2009 Surgical History RIGHT SHOULDER ARTHR OSCOPIC ROTATOR CUFF REPAIR 2018 Hospitalization History SEE SURGICAL HX [facility] Other Summary Purpose Family History Relationship Condition Age at Onset Recorded Date/T vaishali brother Malignant neoplasm of colon Unknown sister Malignant neoplasm of kidney Unknown father Diabetes mellitus Unknown mother Diabetes mellitus Unknown father Unknown Advance Directives Advance Directive Response Recorded Date/ Time Advance Directives No May 16, 2017 2:54pm Advance Directive Response Recorded Date/ Time Advance Directives No May 16, 2017 3:54pm Chief Complaint and Reason for Visit Chief Complaint Admit Date over due for yearly appt, previous sarah maldonado pt September 26, 2024 1:26pm Reason for Visit Admit Date Dysphagia September 26, 2024 1: 26pm Chief Complaint Admit Date over due for yearly appt, charles maldonado pt September 26, 2024 1:26pm Wellness November 25, 2024 3:2 7pm Reason for Visit Admit Date GERD (gastroesophageal reflux disease) J anuary 2024 1:26pm Benign esophageal stricture September 26, 2024 1:26pm Family history of colon cancer September 262024 1:26pm GERD (gastroesophageal reflux disease) M arch 2024 3:27pm Hypertension November 25, 2024 3:2 7pm Screening PSA (prostate specific antigen ) November 25, 2024 3:27pm Type 2 diabetes mellitus with hyperglyce howard November 25, 2024 3:27pm Wellness examination November 25, 2024 3: 27pm Additional Source Comments (unrecognized sect ion and content) No Status Records FoundNo Status Records Found INFORMATION SOURCE (unrecogn ized section and content) DATE CREATED AUTHOR 07/20/2021 [facility] DATE CREATED AUTHOR AUTHOR'S ORGANIZ ATION 01/01/2023 [facility] REASON FOR VISIT (unrecogniz ed section and content) sleep study referralClinical Patient here for follow up gerdrefilllabs3 month Follow up Care Teams (unrecognized sec tion and content) Team Status: Active Member Role Status Dates Anahy Aguirre MD Primary Care Provider Active Team Status: Inactive Member Role Status Dates Anahy Aguirre MD Primary Care Provider Active Start: September 26, 2024 End: September 26, 2024 Reva Jacobson DO Attending Provider Active St art: September 26, 2024 End: September 26, 2024 Team Status: Inactive Member Role Status Dates Anahy Aguirre MD Primary Care Provide r, Attending Provider Active Start: November 25, 2024 End: November 25, 2024 Goals (unrecognized section and content) Goals may be documented in a n alternate section FOR RECORDS PERTAINING TO PATIENTS WHO ARE OR HAVE BEEN ENROLLED IN A CHEMICAL DEPENDENCY/SUBSTANCEABUSE PROGRAM, SOME INFORMATION MAY BE OMITTED. This clinical summary was aggregated from multiple sources. Caution should be exercised in using it in the provision of clinical care. This summary normalizes information from multiple sources, and as a consequence, information in this document may materially change the coding, format and clinical context of patient data. In addition, data may be omitted in some cases. CLINICAL DECISIONS SHOULD BE BASED ON THE PRIMARY CLINICAL RECORDS. [facility] [employer] website [facility]. provides no warranty or guarantee of the accuracy or completeness of information in this document.
[2024-11-30 08:36] LABS: Creatinine Urine Random 202.35 mg/dL (20.00-300.00); Microalbumin Urine Random <1.3 mg/dL (<=30.0)
[2024-11-30 08:38] LABS: Estimated Average Glucose 151 mg/dL; Glycohemoglobin A1C 6.9 % (4.5-6.2)
[2024-11-30 08:49] LABS: Anion Gap 14.2; Chloride 103 mmol/L (98-107); Estimated GFR (African America >60 (>=60 mL/min/1.73m^2); Estimated GFR (Non-African Ame >60 (>=60 mL/min/1.73m^2); Glucose 165 mg/dL (74-106); Potassium 4.2 mmol/L (3.5-5.1); Sodium 142 mmol/L (136-145)
[2024-11-30 08:50] LABS: Alanine Aminotransferase 60 U/L (16-63); Albumin Level 3.8 g/dL (3.4-5.0); Alkaline Phosphatase 51 U/L (46-116); Aspartate Amino Transferase 38 U/L (15-37); BUN Creatinine Ratio 15.6; Bilirubin Total 0.8 mg/dL (0.2-1.0); Calcium 9.2 mg/dL (8.5-10.1); Chol HDL Ratio 3.6; Cholesterol 163 mg/dL (<=200); Globulin 3.7 g/dL; HDL Cholesterol 45 mg/dL (40-60); Total Protein 7.5 g/dL (6.4-8.2); Triglycerides 228 mg/dL (<=150); VLDL CHOLESTEROL 45.6 mg/dL
== END 2024-11-30 08:15 | disposition home or self-care (01) ==
LOC: LAB 08:15
PROVIDERS: PCP Family Medicine; Visit Provider Family Medicine
DX: Z00.00 Encounter for general adult medical examination without abnormal findings (principal); E11.65 Type 2 diabetes mellitus with hyperglycemia; Z12.5 Encounter for screening for malignant neoplasm of prostate; I10 Essential (primary) hypertension
CPT/HCPCS: 36415; 80053; 80061; 82043; 82570; 83036; G0103

== ENCOUNTER 2025-07-16 16:17 | Outpatient (OUT) | payer OTHER, SELFPAY ==
--- OUTSIDE RECORDS SUMMARY | 2025-07-16 16:20 | XMS_ITS | Clinical Summary ---
Author Organization [facility] Healthcare Address [address] [place] [address] Care Team Providers Care Records Associate Name Role Phone Anahy Goss MD Primary Care Provider [phone] Social History Tobacco UseTypesPacks/DayYears UsedDateSmoking Tobacco: Never AssessedSex and Gender InformationValueDate RecordedSex Assigned at BirthNot on fileLegal Sex Male11/30/2022 6:46 PM EDTGender IdentityNot on fileSexual OrientationNot on file Plan of Treatment Not on file Insurance * Guarantor: Charles Hurtado TypeRelation to PatientDate of BirthPhone Billing AddressPersonal/NeshtuFvvn10/13/1966 [facility] [address] Care Teams Team MemberRelationshipSpecialtyStart DateEnd Date Anahy Goss MD PCP - GeneralFamily Medicine03/29/24
--- OUTSIDE RECORDS SUMMARY | 2025-07-16 16:20 | XMS_ITS | Clinical Summary ---
Author Organization [facility] Address [id number] [address] [place] [address] Care Team Providers Care Electric Mule Operator Name Role Phone Anahy Goss MD Primary Care Provider [phone] Allergies No known active allergies Medications MedicationSigDispense QuantityRefillsLast FilledStart DateEnd DateStatus losartan (COZAAR) 50 mg tablet Take 50 mg by mouth daily.Active ibuprofen (ADVIL,MOTRIN) 400 mg tablet Take 400 mg by mouth every 6 (six) hours as needed for pain.Active Active Problems No known active problems Family History Medical HistoryRelationNameCommentsAnesthesia problemsNeg Hx Social History Tobacco UseTypesPacks/DayYears UsedDateSmoking Tobacco: NeverSmokeless Tobacco: NeverAlcohol UseStandard Drinks/WeekCommentsYes2 (1 standard drink = 0.6 oz pure alcohol)ChildcareAnswerDate CyvengwyZcnfnkxwtWtnjgxx29/12/2019EmploymentAnswer Date SezffiqgNjuphhsnhcUtugsvv27/12/2019Purpose - LifeAnswerDate RecordedPurpose and direction in xechXbtlaja75/11/2021ex and Gender InformationValueDate RecordedSex Assigned at BirthNot on fileLegal UffQgmo3704/23/2015 11:31 AM EDT Gender IdentityNot on fileSexual OrientationNot on file Last Filed Vital Signs Vital SignReadingTime TakenCommentsBlood Zkruxtzm817/6601 12:30 PM EST Lwcag436810/17/2017 12:30 PM JAAWcpalerpona82.7 ??C (98.1 ??F)10/17/2017 12:30 PM ESTRespiratory Xmlv351510/17/2017 12:30 PM ESTOxygen Linfumlwom17%10/17/2017 12:30 PM ESTInhaled Oxygen Concentration--Vtxbqg126.7 kg (349 lb 13.9 oz)10/17/2017 5:27 AM CSZElhvei722.1 cm (5' 10.5 )10/17/2017 5:27 AM ESTBody Mass Index49.49 10/17/2017 5:27 AM EST Plan of Treatment Not on file Medical Devices ImplantedTypeAreaManufacturerDevice IdentifierShelf Expiration DateModel / Serial / LotAnch 5.5 Tripleplay 5/Bx Uom Ea Only For Bill-Only - [id number] Implanted:Qty: 1 on 10/17/2017 by Anibal Daly MD at [facility]VLTUHXCAWtzdamWzstgqi68/31/[id number]-5 / / [id number] Sut 4.75mm Swivelock Cls Uom Ea Only For Bill-Only Po - [id number] Implanted:Qty: 1 on 10/17/2017 by Anibal Daly MD at [facility]ITALAnchorRight: ShoulderArthrex 06/17/2022R-2324PSLC / / [id number] Sut 5.5mm Swivelock C Cls Uom Ea Only For Bill-Only Po - [id number] Implanted:Qty: 1 on 10/17/2017 by Anibal Daly MD at [facility]: ShoulderArthrex 2AR-2323PSLC / / [id number] [place] [id number] Care Teams Team MemberRelationshipSpecialtyStart DateEnd Date Anahy Goss MD [address] [place] [address] PCP - General10/17/17
--- OUTSIDE RECORDS SUMMARY | 2025-07-16 16:20 | XMS_ITS | Clinical Summary ---
Author Organization [facility] Address [address] [place] [address] Care Team Providers Care News Camera Person Name Role Phone Anahy Goss MD Primary Care Provider [phone] Medications MedicationSigDispense QuantityRefillsLast FilledStart DateEnd DateStatus losartan (Cozaar) 100 mg tablet Indications:Essential (primary) hypertensionTake 1 tablet (100 mg) by mouth in the morning. 90 tablet 03/13/2023ctive aspirin 81 mg EC tablet Indications:Abnormal result of other cardiovascular function studyTAKE 1 TABLET BY MOUTH EVERY MORNING 90 tablet 3Active Social History Tobacco UseTypesPacks/DayYears UsedDateSmoking Tobacco: Never AssessedUT Safety & EnvironmentAnswerDate RecordedFear of Current or Ex-PartnerNot on file 11/09/2023Emotionally AbusedNot on file11/09/2023hysically AbusedNot on file 11/09/2023Sexually AbusedNot on file4Physically or Sexually AbusedNot on file11/09/2023Sex and Gender InformationValueDate RecordedSex Assigned at BirthNot on fileLegal BlrTnpi7803/16/2022 11:03 PM EDTGender IdentityNot on file Sexual OrientationNot on file Last Filed Vital Signs Vital SignReadingTime TakenCommentsBlood Ximbruoi949/9507 10:30 AM EDT Pulse--Temperature--Respiratory Rate--Oxygen Saturation--Inhaled Oxygen Concentration--Oqgfmo701 kg (330 lb)03/31/2022 10:30 AM RGTVtvhjk876.8 cm (5' 10 )03/31/2022 10:30 AM EDTBody Mass Index47.35003/31/2022 10:30 AM EDT Plan of Treatment Not on file Care Teams Team MemberRelationshipSpecialtyStart DateEnd Date Anahy Goss MD [address] [facility] PCP - General05/25/22
--- OUTSIDE RECORDS SUMMARY | 2025-07-16 16:24 | XMS_ITS | CCD ---
Author Organization [facility] Care Team Providers Care Fraud Analyst Name Role Phone Anahy Aguirre Unavailable Kevin Garcia Unavailable ANAHY AGUIRRE Admitting Unavailable ANAHY AGUIRRE E Attending Unavailable RAD AGUIRREIA E Primary Care Unavailable Brain Thomas Consulting Unavailable AGUIRRE, ANAHY E Consulting Unavailable AGUIRRE, ANAHY E Admitting Unavailable TIMOTHY ANAHY E Attending Unavailable TIMOTHY, ANAHY E Primary Care Unavailable CAROLANN SARMIENTO Admitting Unavailable CAROLANN SARMIENTO Attending Unavailable TIMOTHY, ANAHY E Primary Care Unavailable CAROLANN SARMIENTO Consulting Unavailable TIMOTHY, ANAHY E Admitting Unavailable TIMOTHY ANAHY E Attending Unavailable AGUIRRE, ANAHY E Primary Care Unavailable AGUIRRE, ANAHY E Consulting Unavailable AGUIRRE, ANAHY E Admitting Unavailable AGUIRREANAHY E Attending Unavailable AGUIRRE, ANAHY E Primary Care Unavailable AGUIRRE, ANAHY E Consulting Unavailable AGUIRRE, ANAHY E Admitting Unavailable AGUIRRERADIA E Attending Unavailable TIMOTHY, ANAHY E Primary Care Unavailable TIMOTHY, ANAHY E Consulting Unavailable Medications Current Medications MedicationDrug Class(es)DatesSig (Normalized)Sig (Original)0.25 MG, 0.5 MG Dose 3 ML semaglutide 0.68 MG/ML Pen Injector [Ozempic] (1 source)Ozempic (0.25 or 0.5 MG/DOSE) 2 MG/3ML 0.25mg Subcutaneous weekly for 28 days ActiveAccu-Chek Guide - (1 source)Accu-Chek Guide - TEST ONCE A DAY for 30 ActiveAspir-81 (3 sources)Aspir-81 Activelosartan potassium 100 mg oral tablet (13 sources)Angiotensin 2 Receptor BlockerStart: 32-14-1340vgal 1 tablet by mouth once dailyLosartan 100 mg tablet Active 0 .ROUTE .COMPLEX November 22, 2024 9:30am TAKE 1 TABLET BY MOUTH EVERY DAYStart: 11-20-2023 End: 63-06-3584oppk 1 tablet by mouth once dailyLosartan 100 mg tablet Discontinued 100 MG PO Daily November 21, 2023 9:49am November 22, 2024 9:30am Start: 05-19-2017 End: 63-92-8183fyjj 1 tablet by mouth once dailyLosartan 50 mg Tablet Discontinued 50 MG PO daily May 19, 2017 12:00am November 20, 2023 4:53pm take 1 tablet by mouth every twenty-four hoursLosartan Potassium 100 MG 1 tablet Orally Once a day for 90 days Dtonyx08 hr metFORMIN hydrochloride 750 mg extended release oral tablet (12 sources)BiguanideStart: 11-20-2023 End: 89-51-9083ruvx 1 tablet by mouth twice dailyMetformin 750 mg tablet extended release 24 hr Active 750 MG PO Twice daily 180 November 21, 2023 9:49am Start: 06-25-2021 End: 69-06-1516cpil 1 tablet by mouth once dailyMetformin 500 mg tablet extended release 24 hr Discontinued 500 MG PO Daily June 25, 2021 12:00am November 20, 2023 4:53pmtake 1 tablet by mouth twice dailymetFORMIN HCl ER 750 MG TAKE 1 TABLET BY MOUTH TWICE A DAY for 30 days Activetake 1 tablet by mouth every twelve hoursmetFORMIN HCl 500 MG 1 tablet with a meal Orally twice a day Active ozempic (0.25 or 0.5 mg/dose) 2 mg/3ml solution pen-injector (1 source)inject 0.5 mg by subcutaneous injection every weekOzempic (0.25 or 0.5 MG/DOSE) 2 MG/3ML 0.5mg Subcutaneous weekly for 28 days ActiveSemaglutide (5 sources)Start: 12-84-0923heiqmz 0.5 mg by subcutaneous injection every week Semaglutide (Ozempic) 0.25 mg or 0.5 mg (2 mg/3 mL) pen injector Active 0 .ROUTE .COMPLEX November 07, 2024 10:04am ADMINISTER 0.5 MG UNDER THE SKIN EVERY WEEKStart: 08-14-2024 End: 69-25-3287ciznuc 0.5 mg by subcutaneous injection every weekSemaglutide (Ozempic) 0.25 mg or 0.5 mg (2 mg/3 mL) pen injector Discontinued 0 .ROUTE .COMPLEX August 14, 2024 2:55pm November 07, 2024 10:04am ADMINISTER 0.5 MG UNDER THE SKIN EVERY WEEKStart: 16-84-2383tukmna 0.5 mg by subcutaneous injection every weekSemaglutide (Ozempic) 0.25 mg or 0.5 mg (2 mg/3 mL) pen injector Active 0 .ROUTE .COMPLEX August 14, 2024 1:55pm ADMINISTER 0.5 MG UNDER THE SKIN EVERY WEEKStart: 02-05-2024 End: 82-24-8907Yxztywmvqoc (Ozempic) 0.25 mg or 0.5 mg (2 mg/3 mL) pen injector Discontinued 0.5 MG SUBCUT every week 9.568 90 February 05, 2024 12:00am August 14, 2024 2:55pmStart: 02-05-2024 End: 68-80-3998Gcgkjszvxty (Ozempic) 0.25 mg or 0.5 mg (2 mg/3 mL) pen injector Discontinued 0.5 MG SUBCUT every week 9.568 90 February 04, 2024 11:00pm August 14, 2024 1:55pm Completed/Discontinued Medications MedicationDrug Class(es)DatesSig (Normalized)Sig (Original)pantoprazole 40 mg delayed release oral tablet (14 sources)Proton Pump InhibitorStart: 09-05-2018 End: 73-92-7788bykh 1 tablet by mouth once dailyPantoprazole 40 mg tablet,delayed release (DR/EC) Discontinued 40 MG PO Daily June 25, 2021 12:00am May 30, 2024 10:24am Problems Problem ClassificationProblemDateDocumented DateEpisodic/ChronicDiabetes mellitus with complications (11 sources)Hyperglycemia due to type 2 diabetes mellitus; Translations: [Type 2 diabetes mellitus with hyperglycemia]ChronicDiabetes mellitus without complication (6 sources)Type 2 diabetes mellitus; Translations: [Type 2 diabetes mellitus without complications]ChronicEsophageal disorders (12 sources)Gastroesophageal reflux disease; Translations: [Gastro-esophageal reflux disease without esophagitis]ChronicComment on above:Problem List clean-up per request of Phys. EHR CmteEssential hypertension (14 sources)Essential hypertension; Translations: [Essential (primary) hypertension]Onset: 26-17-1954KfkbhykUvvudlq on above:Problem List clean-up per request of Phys. EHR CmteNonspecific chest pain (10 sources)Chest pain; Translations: [Chest pain, unspecified]Onset: 03-24-2022 EpisodicOther and ill-defined heart disease (1 source)Cardiomegaly; Translations: [CARDIOMEGALY]Onset: 13-67-4208Wjxnmnm Other and unspecified benign neoplasm (6 sources)History of polyp of colon; Translations: [Personal history of colonic polyps]EpisodicOther connective tissue disease (1 source)Other symptoms and signs involving the musculoskeletal systemEpisodic Other gastrointestinal disorders (8 sources)Dysphagia; Translations: [Dysphagia, unspecified]27-55-6743Wewzyyxq Comment on above:Problem List clean-up per request of Phys. EHR CmteOther gastrointestinal disorders (1 source)Dysphagia, unspecified; Translations: [Dysphagia, unspecified] 55-37-8154HbsjbmayFxhso nutritional; endocrine; and metabolic disorders (6 sources)Body mass index 40+ - severely obese; Translations: [Body mass index (BMI) 45.0-49.9, adult]ChronicOther screening for suspected conditions (not mental disorders or infectious disease) (13 sources)Cardiovascular stress test abnormal; Translations: [Abnormal result of other cardiovascular function study]Onset: 05-71-0560HgrdothzUtvjmkus codes; unclassified (6 sources)Obstructive sleep apnea syndrome; Translations: [Obstructive sleep apnea (adult) (pediatric)]ChronicResidual codes; unclassified (5 sources)Obstructive sleep apnea (adult) (pediatric); Translations: [OBSTRUCTIVE SLEEP APNEA]Onset: 67-74-4672OzjjlqwSzpgkrkv codes; unclassified (2 sources)Family history of cancer of colon; Translations: [Family history of malignant neoplasm of digestiveorgans]66-55-6611XiwegaliOgxgfki on above:Problem List clean-up per request of Phys. EHR CmteResidual codes; unclassified (1 source)Family history of malignant neoplasm of digestive organs; Translations: [Family history of malignant neoplasm of gastrointestinal tract] 31-61-5718Wbvkzsvi Results Test NameValueInterpretationReference RangeFacilityECHOCARDIO M/2D COMPLETEon 91-35-9451HXVOOVMZID M/2D COMPLETEPatient: CHARLES OSPINA Exam Date: 04/13/2022 : 1965 Gender:M Ordering : CAROLANN SARMIENTO [facility] Admission #: [id number] Family : DR ANAHY AGUIRRE M.D. Order #: [id number] CLICK HERE TO VIEW EXAM ECHOCARDIOGRAM REPORT [...] Jose Enrique Hogan M.D. on 04/13/2022 at 16:37[facility] STRESS/REST MULTIon 63-77-3835CF STRESS/REST MULTIPatient: CHARLES OSPINA Exam Date: 03/23/2022 : 1965 Gender:M Ordering : DR ANAHY AGUIRRE M.D. Admission #: [id number] Family : Order #: [id number] CLICK HERE TO VIEW EXAM RADIOLOGY REPORT [...] by: Brain Thomas M.D. on 03/24/2022 at 15:52NormalThPeoples Hospital AUTO DIFFon 35-56-0005PVDK #0.1 103/ulNormal0.0-0.1The [facility] HospitalComment on above:Performed By: #### CBC #### [facility] [address] [place] [address] Dr. Nehemiah DsouzaBasophils/100 WBC (Bld)0.9 %Normal0.2-2.0[facility] Comment on above:Performed By: #### CBC #### [facility] [address] [place] [address] Dr. Nehemiah Finch #0.3 103/ulNormal0.0-0.7The [facility] HospitalComment on above: Performed By: #### CBC #### [facility] [address] [place] [address] Dr. Nehemiah Santiagoosinophils/100 WBC (Bld)4.3 %Normal0.9-7.0[facility] Comment on above:Performed By: #### CBC #### [facility] [address] [place] [address] Dr. Nehemiah Santiagorythrocyte distribution width (RBC) [Ratio]13.8 %Gfwynv91.0-15.0 The [facility] HospitalComment on above:Performed By: #### CBC #### [facility] [address] [place] [address] Dr. Nehemiah DsouzaHematocrit (Bld) [Volume fraction]46.3 %Gafxme63.0-54.0The [facility] HospitalComment on above:Performed By: #### CBC #### [facility] [address] [place] [address] Dr. Nehemiah DsouzaHemoglobin (Bld) [Mass/Vol]14.9 g/pOJadpla67.0-18.0The [facility] HospitalComment on above:Performed By: #### CBC #### [facility] [address] [place] [address] Dr. Nehemiah Reyes #0.03 10e3/ulNormal0.00-0.03The [facility] HospitalComment on above:Performed By: #### CBC #### [facility] [address] [place] [address] Dr. Nehemiah Reyes %0.4 %Normal0.0-0.5The [facility] HospitalComment on above: Performed By: #### CBC #### [facility] [address] [place] [address] Dr. Nehemiah Monge #1.9 103/ulNormal1.2-3.8The [facility] HospitalComment on above:Performed By: #### CBC #### [facility] [address] [place] [address] Dr. Nehemiah Prakashhocytes/100 WBC (Bld)24.3 %Caelim64.5-60.0The [facility] HospitalComment on above:Performed By: #### CBC #### [facility] [address] [place] [address] Dr. Nehemiah CrawfordACCESS [facility] DIFF REQNONormalThe [facility] HospitalComment on above: Performed By: #### CBC #### [facility] [address] [place] [address] Dr. Nehemiah Lynch (RBC) [Entitic mass]28.6 tcTmxbtt76.9-34.0The [facility] HospitalComment on above:Performed By: #### CBC #### [facility] [address] [place] [address] Dr. Nehemiah Mckeon (RBC) [Mass/Vol]32.2 g/oCNjlahx13.9-35.2The [facility] HospitalComment on above:Performed By: #### CBC #### [facility] [address] [place] [address] Dr. Nehemiah Mckeon (RBC) [Entitic vol]88.9 lPZxakda93.0-94.0The [facility] HospitalComment on above:Performed By: #### CBC #### [facility] [address] [place] [address] Dr. Nehemiah Jackson #0.6 103/ulNormal0.3-0.8The [facility] HospitalComment on above:Performed By: #### CBC #### [facility] [address] [place] [address] Dr. Nehemiah Jamesocytes/100 WBC (Bld)7.6 %Normal1.7-12.0[facility] Comment on above:Performed By: #### CBC #### [facility] [address] [place] [address] Dr. Nehemiah Vazquez #5.0 103/ulNormal1.4-6.5The [facility] HospitalComment on above:Performed By: #### CBC #### [facility] [address] [place] [address] Dr. Nehemiah Lairdutrophils/100 WBC (Bld)62.5 %Benorl68.0-75.0The [facility] HospitalComment on above:Performed By: #### CBC #### [facility] [address] [place] [address] Dr. Nehemiah Seelet mean volume (Bld) [Entitic vol]10.9 fLNormal9.5-13.5The [facility] HospitalComment on above:Performed By: #### CBC #### [facility] [address] [place] [address] Dr. Nehemiah DsouzaPLT259 103/vuAxszwb359-582Clw [facility] HospitalComment on above: Performed By: #### CBC #### [facility] [address] [place] [address] Dr. Nehemiah DsouzaRBC5.21 106/ulNormal4.70-6.10The [facility] HospitalComment on above:Performed By: #### CBC #### [facility] [address] [place] [address] Dr. Nehemiah DsouzaWBC7.9 103/ulNormal4.0-11.0The [facility] HospitalComment on above: Performed By: #### CBC #### [facility] [address] [place] [address] Dr. Nehemiah DsouzaGLYCOHEMOGLOBIN A1Con 37-78-7804ZZV RECOMMENDATIONSEE BELOWCygnet The [facility] HospitalComment on above:Result Comment: ADA RECOMMENDED LIMIT 4.0 - 6.0 ADA THERAPEUTIC TARGET < 7.0 ACTION SUGGESTED > 7.0Performed By: #### A1C #### [facility] [address] [address] [address] Nehmeiah DsouzaGlucose [Mass/Vol]146 mg/dLNoKettering Health Behavioral Medical CenterComment on above:Performed By: #### A1C #### [facility] [address] [address] [address] Nehemiah DsouzaHbA1c (Bld) [Mass fraction]6.7 %Critically high4.5-6.2[facility] HospitalComchildren[facility] [place] on above:Performed By: #### A1C #### [facility] [address] [place] [address] Dr. Nehemiah VossID PROFILEon 82-09-1690IMCO-HDL RATIO NORMSEE BELOWCleveland Clinic Children's Hospital for RehabilitationComment on above:Result Comment: 3.3 - 4.4 LOW RISK 4.4 - 7.1 AVERAGE RISK 7.1 - 11.0 MODERATE RISK >11.0 HIGH RISKPerformed By: #### LIPID, CMP #### [facility] [address] [place] [address] Dr. Nehemiah DsouzaCholesterol [Mass/Vol]173 mg/dLNormal<=200[facility] Comment on above:Performed By: #### LIPID, CMP #### [facility] [address] [place] [address] Dr. Nehemiah DsouzaCholesterol in HDL [Mass/Vol]44 mg/rHEacign08-07Dis [facility] HospitalComment on above:Performed By: #### LIPID, CMP #### [facility] [address] [address] [address] Nehemiah DsouzaCholesterol in LDL [Mass/Vol]99.0 mg/dLCleveland Clinic Children's Hospital for RehabilitationComment on above:Performed By: #### LIPID, CMP #### [facility] [address] [place] [address] Dr. Nehemiah DsouzaCholesterol.total/Cholesterol in HDL [Mass ratio]3.9 {ratio} NormalThe [facility] Ment[facility] HospitalComment on above:Performed By: #### LIPID, CMP #### [facility] [address] [place] [address] Dr. Nehemiah Lea NORMAL> or = 60 mg/dl - LOW CARDIOVASCULAR RISK <40 mg/dl - HIGH CARDIOVASCULAR RISKCleveland Clinic Children's Hospital for RehabilitationComment on above:Performed By: #### LIPID, CMP #### [facility] [address] [place] [address] Dr. Nehemiah DsouzaLDL CALC NORMALSEE BELOWCleveland Clinic Children's Hospital for RehabilitationComment on above:Result Comment: <100 mg/dl OPTIMAL 100 - 129 mg/dl NEAR OR ABOVE OPTIMAL 130 - 159 mg/dl BORDERLINE HIGH 160 - 189 mg/dl HIGH >190 mg/dl VERY HIGH Performed By: #### LIPID, CMP #### [facility] [address] [place] [address] Dr. Nehemiah DsouzaTriglyceride [Mass/Vol]150 mg/dLNormal<=150[facility] Comment on above:Performed By: #### LIPID, CMP #### [facility] [address] [place] [address] Dr. Nehemiah AmayaLDL CALC30.0 mg/dLNoKettering Health Behavioral Medical CenterComment on above: Performed By: #### LIPID, CMP #### [facility] [address] [place] [address] Dr. Nehemiah DsouzaPROF 14(COMP METB)on 56-62-5504Seymqst [Mass/Vol]3.9 g/dLNormal 3.4-5.0[facility] HospitalComment on above:Performed By: #### LIPID, CMP #### [facility] [address] [place] [address] Dr. Nehemiah DsouzaAlbumin/Globulin [Mass ratio]1.0 {ratio}NormalThe [facility] HospitalComment on above:Performed By: #### LIPID, CMP #### [facility] [address] [place] [address] Dr. Nehemiah Canas [Catalytic activity/Vol]58 U/YEdwncs18-991Png [facility] HospitalComment on above:Performed By: #### LIPID, CMP #### [facility] [address] [address] [address] Nehemiah StevensT [Catalytic activity/Vol]75 U/LCritically nvoz04-47Nim [facility] HospitalComment on above:Performed By: #### LIPID, CMP #### [facility] [address] [address] [address] Nehemiah Reddyon gap [Moles/Vol]9.9 mmol/LNormalThe [facility] HospitalComment on above:Performed By: #### LIPID, CMP #### [facility] [address] [place] [address] Dr. Nehemiah DsouzaAST [Catalytic activity/Vol]38 U/LCritically faqm66-61Xak [facility] HospitalComment on above:Performed By: #### LIPID, CMP #### [facility] [address] [place] [address] Dr. Nehemiah DsouzaBilirubin [Mass/Vol]0.8 mg/dLNormal0.2-1.0[facility] Comment on above:Performed By: #### LIPID, CMP #### [facility] [address] [place] [address] Dr. Nehemiah DsouzaCalcium [Mass/Vol]9.3 mg/dLNormal8.5-10.1[facility] Comment on above:Performed By: #### LIPID, CMP #### [facility] [address] [place] [address] Dr. Nehemiah DsouzaChloride [Moles/Vol]102 mmol/VAvspjg61-378Sbi [facility] Comment on above:Performed By: #### LIPID, CMP #### [facility] [address] [place] [address] Dr. Nehemiah DsouzaCO2 [Moles/Vol]30.6 mmol/YLugvji74.0-32.0[facility] Comment on above:Performed By: #### LIPID, CMP #### [facility] [address] [place] [address] Dr. Nehemiah DsouzaCreatinine [Mass/Vol]1.00 mg/dLNormal0.70-1.30[facility] HospitalComment on above:Performed By: #### LIPID, CMP #### [facility] [address] [place] [address] Dr. Nehemiah SantiagoGFR-AF CITIZEN OF [place]>60Normal>=60The [facility] HospitalComment on above:Performed By: #### LIPID, CMP #### [facility] [address] [address] [address] Nehemiah SantiagoGFR-NON AF CITIZEN OF [place]>60Normal>=60The [facility] HospitalComment on above:Performed By: #### LIPID, CMP #### [facility] [address] [place] [address] Dr. Nehemiah DsouzaGlobulin (S) [Mass/Vol]4.0 g/dLNormalThe [facility] HospitalComment on above:Performed By: #### LIPID, CMP #### [facility] [address] [place] [address] Dr. Nehemiah DsouzaGlucose [Mass/Vol]128 mg/dLCritically gnmj43-071Eda [facility] Generalment on above:Performed By: #### LIPID, CMP #### [facility] [address] [place] [address] Dr. Nehemiah DsouzaPotassium [Moles/Vol]4.5 mmol/LNormal3.5-5.1[facility] Comment on above:Performed By: #### LIPID, CMP #### [facility] [address] [place] [address] Dr. Nehemiah DsouzaProtein [Mass/Vol]7.9 g/dLNormal6.4-8.2[facility] Comment on above:Performed By: #### LIPID, CMP #### [facility] [address] [place] [address] Dr. Nehemiah DsouzaSodium [Moles/Vol]138 mmol/FNjkxcl150-265Met [facility] Comment on above:Performed By: #### LIPID, CMP #### [facility] [address] [place] [address] Dr. Nehemiah Pastrana nitrogen [Mass/Vol]21.0 mg/dLCritically high7.0-18.0[facility] HospitalComment on above:Performed By: #### LIPID, CMP #### [facility] [address] [address] [address] Nehemiah Pastrana nitrogen/Creatinine [Mass ratio]21.0 mg/mgNoKettering Health Behavioral Medical CenterComment on above:Performed By: #### LIPID, CMP #### [facility] [address] [address] [address] Nehemiah DsouzaGlucose Poct Glucometerson 21-46-8503Rfaehkr6Hyx6: Cleaned Meter [facility] HospitalComment on above:Result Comment: PERFORMED BY: [facility] [address] [place] [address] PATHOLOGIST SLEDGER MONET TRAMMELL M.D.Performed By: #### GLULS #### Point of Care testing ,Glucose [Mass/Vol]165 mg/dLNoKettering Health SpringfieldComment on above:Result Comment: Random Glucose Reference Range is dependent on time and content of last meal. Glucose of more than 200 mg/dL in a nonstressed, ambulatory subject supports the diagnosis of Diabetes Mellitus.Performed By: #### GLULS #### Point of Care testing ,[place] 06-28-2021 Specimen: [id number] Received: 06/28/21 Status: HELENA Gaytan Num: [id number] Spec Type: Surgical Subm Dr: Cameron Jarvis Jr, DO Tissues: A Colon - Polyp (DESCENDING POLYPS) Procedures: HE Stain/2, Gross/Micro L4 Patient Age/Sex Location Account Attending Physician Charles Ospina /[facility] [id number] Cameron Jarvis Jr, DO SPEC NUM: [id number] RECD: 06/28/21 STATUS: HELENA HERNANDEZFiliberto NUM: [id number] KATHY: 06/28/[address] [facility] [address]: Cameron Jarvis Jr, DO ENTERED: 06/28/21 [facility] DR: BOBBI TYPE: Surgical DEPT: S ORDERED: [...] microscopic findings support the above pathologic diagnosis. [id number] Specimen: [id number] Received: 06/28/21 Status: HELENA Gaytan Num: [id number] Spec Type: Surgical Subm Dr: Cameron Jarvis Jr, DO Tissues: A Colon - Polyp (DESCENDING POLYPS) Procedures: HE Stain/2, Gross/Micro L4 Patient: Charles Ospina [id number] (Continued) Signed (signature on file) Monet Trammell MD 06/29/21 1239 [facility] HospitalCOVID-19 Antigenon 13-46-4416DSTDF- AntigenHealthcare Worker?: N Concha Reference Concha Reference Negative SARS-CoV+SARS-CoV-2 (COVID-19) Ag [Presence] in [...] its performance Concha Disclaimer characteristic determined by [employer] and Concha Disclaimer validated at [facility]. This Concha Disclaimer test has not been [...] is terminated or revoked sooner. PERFORMED BY: [place] [address] PATHOLOGIST SLEDGER MONET TRAMMELL M.D.NormalSumma Health Akron CampusComment on above: Performed By: #### COVID-19 CONCHA, SOFIANEG #### [facility] [address] [place] [address] USASofia Ag Negativeon 98-55-0743Laoad Ag NegativeNegative NormalNegativeSumma Health Akron CampusComment on above:Result Comment: This is a duplicate Concha SARS Antigen (FREEMAN) result to be used for statistical tracking purpose only. PERFORMED BY: [place] [address] PATHOLOGIST SLEDGER MONET TRAMMELL M.D.Performed By: #### COVID-19 CONCHA, SOFIANEG #### [facility] [address] [place], [place] [id number] [facility] Vital Signs Date TimeVital SignValuePerforming TqmblfbmtGjwxdcdu91-47-9857 15:29-0400Body kasecs865.8 cmSumma Health [facility] Campus03-10-2025 15:29-0400Body mass index (BMI) [Ratio]43.9 kg/s4GzxpzmpyaSumma Health Akron Campus03-10-2025 15:29-0400Body .79 kgSumma Health [facility]ron Campus03-10-2025 15:29-0400Diastolic blood ilesvwpk14 mm[Hg][facility] 11-25-2024 15:29-0400Heart rate93 /[facility] 11-25-2024 15:29-0400Systolic blood stmhmmyk101 mm[Hg][facility]01-09-2025 13:39-0500Body oogpuu670.8 cmSumma Health [facility] Campus 09-26-2024 13:39-0500Body mass index (BMI) [Ratio]44 kg/c4UeicfpmlwSumma [facility]01-09-2025 13:39-0500Body uymkrv523.25 kg[facility] 13:39-0500Diastolic blood khdjaidw16 mm[Hg][facility]01-09-2025 13:39-0500Heart rate88 /[facility]01-09-2025 13:39-0500Systolic blood qqbcjfji837 mm[Hg][facility]01-19-2024 08:30-0500Body .8 cmAnahy Aguirre Other [employer] Other 01-19-2024 08:30-0500Body mass index (BMI) [Ratio] 45.19 kg/e3VykbjxAnahy Aguirre Other [employer] Other 01-19-2024 08:30-0500Body gyfiaj742.88 kgAnahy Aguirre Other [employer] Other 01-19-2024 08:30-0500Diastolic blood jlzjankt42 mm[Hg] Anahy Aguirre Other [employer] Other 01-19-2024 08:30-0500Systolic blood sqpmikrz181 mm[Hg] Anahy Aguirre Other [employer] Other 06-27-2023 15:30-0400Body .8 cmLsalina Garcia Other [employer] Other 06-27-2023 15:30-0400Body mass index (BMI) [Ratio] 46.91 kg/r2FvsvgejoKevin Garcia Other [employer] Other 06-27-2023 15:30-0400Body .33 kgLawrnorm Garcia Other [employer] Other 06-27-2023 15:30-0400Diastolic blood mm[Hg] Kevin Garcia Other [employer] Other 06-27-2023 15:30-0400Systolic blood ywfeihhu591 mm[Hg] Kevin Garcia Other [employer] Other 03-07-2023 15:30-0500Body .8 cmAnahy Aguirre Other [employer] Other 03-07-2023 15:30-0500Body mass index (BMI) [Ratio] 48.06 kg/y2RegdxgAnahy Aguirre Other [employer] Other 03-07-2023 15:30-0500Body edzpgk807.96 kgAnahy Aguirre Other [employer] Other 03-07-2023 15:30-0500Diastolic blood iypcwngl86 mm[Hg] Anahy Aguirre Other [employer] Other 03-07-2023 15:30-3737ZnM6% (BldA) [Mass fraction]97 % Anahy Aguirre Other [facility] Other 03-07-2023 15:30-0500Systolic blood crywwwnh939 mm[Hg] Anahy Aguirre Other [facility] [employer] Other Encounters Encounter DateEncounter TypeCare ProviderFacilityStart: 49-51-4396Zygxtht encounter statusProMedica Flower Hospitaltart: 11-25-2024 End: 39-57-0235yiyewzfghmTjlrqnvuuParma [facility] Work Phone: Start: 11-25-2024 End: 52-67-9283Asdceplpk for general adult medical examination without abnormal findingsProMedica Flower Hospitaltart: 11-25-2024 End: 58-95-5529Njgbcln encounter procedureCounts Include [address] [facility] Physician [facility] Work Phone: Start: 09-26-2024 End: 69-26-3643ukhamplltlDgtfyvvopParma Community General Hospital Work Phone: Start: 09-26-2024 End: 68-08-0949Iaoeyhs encounter procedureCounts Include [address] [facility] Physician [facility] Work Phone: Start: 10-06-2023 End: 53-20-7152hfwmkddccgBfvevj Braun Other [facility] Other Start: 49-33-4858Gqjfkk outpatient visit 15 minutes Anahy TimothyAshly [facility]: 06-20-2023 End: 70-47-4993sfupmqborlNlwmxt Braun Other [facility] Other Start: 26-64-5387Tsnlnvuow encounterMarpamela Mcwilliams [facility]art: 06-13-2023 End: 62-67-9683ydepldoseaPnofei Braun Other [employer] Other Start: 11-33-7791Ggzrqozck encounterMarpamela [facility] ClinicStart: 03-14-2023 End: 74-53-9965mbncamvbpwQcqyhdhe Jose Other [facility] [employer] Other Start: 31-88-6858Duuaab outpatient visit 25 minutes Kevin Leora GastroenterologyStart: 12-26-2022 End: 84-49-6730ascaqlcjleKFEUWF E BRAUNFacility:X3Kxbls: 12-06-2022 End: 89-25-3003dsnfdjcehnOOLCAA E BRAUNFacility:G2Seykx: 11-30-2022 End: 87-97-8761fdzkliuwxgYupttkld Jose Other [facility] Other Start: 11-67-3549Dgwquqybb encounterLawrnorm [place]ST[place] GastroenterologyStart: 11-22-2022 End: 15-13-2321kcyiixrwheCttmbn Aguirre Other [facility] Other Start: 59-56-4327Lwnodl outpatient visit 15 minutes Anahy Poppy [facility] ClinicStart: 04-13-2022 End: 02-96-8469laabmlvfgeRKCVXOE MYRANDAERFacility:C7Blcbd: 03-24-2022 End: 57-71-4090tzggkbruzwQNJAEQ E BRAUNFacility:Q0Nxflp: 03-23-2022 End: 24-74-4961cmqydjkkflEWGMWX E BRAUNFacility:C9Dpgcy: 13-78-2591Xfqdfqdce for general adult medical examination without abnormal findingsANAHY FoxDayton Children's Hospitaltart: 62-14-9276Iqenc health examinationAnahy Aguirre Other [employer] Other Start: 02-11-2022 End: 70-66-1937ofuqquefilLJVZBA E BRAUNFacility:Y0Ercwo: 02-11-2022 End: 05-25-1034Ddkumwkca for general adult medical examination without abnormal findingsANAHY AGUIRREFacility:H1 Procedures DateProcedureProcedure DetailPerforming ClinicianStart: 36-64-5749QGI screening ANAHY TIMOTHYComment on above:Performed By: #### PSASC #### [facility] [address] [address] [address] [facility] screeningAnahy Aguirre Other Plan of Treatment DateCare ActivityDetailAuthorComprehensive metabolic 2000 panel - Serum or PlasmaSt. [facility] Immunizations Immunization DateImmunizationNotesCare NtdiqpkkPqjtynsw78-00-3754rlnmsvwwd virus vaccine, split virus (incl. purified surface antigen)Anahy Aguirre Other [employer] Other 12680819-92-8713eezsauutg virus vaccine, unspecified formulationSum[facility]09-07-2022COVID-19 Pfizer (Pediatric)Anahy Aguirre Other [facility]12-02-2021COVID-19 Vaccine Pfizer - Documentation Purposes OnlyAnahy Aguirre Other [facility]10-07-2021influenza virus vaccine, split virus (incl. purified surface antigen)Anahy Aguirre Other [employer] Other 594343-11-2554rrvkkfoie virus vaccine, unspecified formulationSumma [facility]09-14-2021zoster vaccine, liveMarcia Aguirre Other [facility]05-19-2021zoster vaccine, liveIvettecia Timothy Other [facility]04-22-2021COVID-19 mRNA, Comirnaty (Pfizer)[facility]04-01-2021COVID-19 mRNA, Comirnaty (Pfizer)[facility] Payers DatePayer CategoryPayerPolicy [id number] 2..[id number] 2..840.[id number] 2..0.1.56843[id number] 2..840.[id number] 2.0.1.560312.19 [id number] Social History DateTypeDetailFacilityUnknown if ever smokedBristol scenios Other Sex Assigned At BirthSex [facility]igned At [facility] Other Start: 10-06-2023 End: 14-46-1782Bgatsgu smoking status NHISNever smoked tobacco (finding) [facility]: 09-26-2024 End: 08-79-4977UssRdgr (finding)[facility]: 04-45-5530Qjw Assigned At [facility] Medical Equipment Procedure CodeEquipment CodeEquipment Original TextEquipment IdentifierDates Accu-Chek Softclix Lancets -Blood Sugar Diagnostic (Accu-Chek Guide Test Strips) stripStart: 13-68-3903Msmiokn (Accu-Chek Softclix Lancets) miscStart: 45-02-1663Qpxtf Sugar Diagnostic (Accu-Chek Guide Test Strips) stripStart: 11-20-2023 End: 22-09-6164Tzfupjo (Accu-Chek Soft[employer]ix Lancets) miscStart: 11-20-2023 End: 51-76-0572Wkjtiir (Accu-Chek [employer]ix Lancets) miscStart: 11-21-2023 End: 03-03-2240Teiwg Sugar Diagnostic (Accu-Chek Guide Test Strips) stripStart: 56-61-0835Ldcymrj (Accu-Chek Soft[employer]ix Lancets) miscStart: 08-71-2871Teqid Sugar Diagnostic (Accu-Chek Guide Test Strips) stripStart: 11-20-2023 End: 75-84-2853Tvcry Sugar Diagnostic (Accu-Chek Guide Test Strips) stripStart: 11-21-2023 End: 67-73-9967Awquuvj (Accu-Chek Soft[employer]ix Lancets) miscStart: 02-23-2024 End: 50-96-9417Akzaiak (Accu-Chek [employer]ix Lancets) miscStart: 11-20-2023 End: 41-48-5012Fzyghny (Accu-Chek [employer] Lancets) miscStart: 11-21-2023 End: 02-23-2024 Evaluation note 09-26-2024 Note Date & IbxaSxwhMgtmekqn62-77-7931 Evaluation note* Diagnosis Onset Date Resolution Status Admit Date GERD (gastroesophageal reflux disease) acuteJanuary 2024 1:26pmBenign esophageal strictureinactiveJanuary 2024 1:26pmFamily history of colon cancerinactiveJanuary 2024 1:26pmGERD (gastroesophageal reflux disease)acuteNovember 25, 2024 3:27pmHypertensionacute November 25, 2024 3:27pmScreening PSA (prostate specific antigen)acuteNovember 25, 2024 3:27pmType 2 diabetes mellitus with hyperglycemia2024 3:27pmWellness examinationacuteNovember 25, 2024 3:27pm [facility] Work Phone: Evaluation note 10-06-2023 Note Date & NclzZphxSzeeupki95-42-1202 Evaluation note* Encounter Date Diagnosis Assessment Notes Treatment Notes Treatment Clinical Notes Sep, Hyperglycemia due to type 2 diab etes mellitus (ICD-10 - E11.65) Increased doses of both. Followup in 3 months. Discussed exercise benefits. Sep,Weakness of both hands (ICD-10 - R29.898)Symptoms not c/w carpal tunner or OA - no pain or paresthesias. DIscussed strengthening exercises. O ffered OT order in the future if problem persists. [employer] Other Evaluation note 06-20-2023 Note Date & QwmqUswkYxeapcxq63-83-0240 Evaluation note* Encounter Date Diagnosis Assessment Notes Treatment Notes Treatment Clinical Notes Jun, Hyperglycemia due to type 2 diab etes mellitus (ICD-10 - E11.65) [employer] Other Evaluation note 06-13-2023 Note Date & MieuVscpDeooygfb38-03-4987 Evaluation note* Encounter Date Diagnosis Assessment Notes Treatment Notes Treatment Clinical Notes May, Essential (primary) hypertension (ICD-10 - I10) [employer] Other Evaluation note 03-14-2023 Note Date & VrkwAqevDfjqghef68-67-9815 Evaluation note* Encounter Date Diagnosis Assessment Notes Treatment Notes Treatment Clinical Notes Feb, GERD (gastroesophageal reflux di sease) (ICD-10 - K21.9) Continue pantoprazole 40 mg daily Rto 2 yrs [employer] Other Evaluation note 11-22-2022 Note Date & HciwCtfxInwkznng64-80-7938 Evaluation note* Encounter Date Diagnosis Assessment Notes Treatment Notes Treatment Clinical Notes Nov, INGRID (obstructive sleep apnea) (I CD-10 - G47.33) Handwrote referral to [facility]. Nov,Hyperglycemia due to type 2 diabetes mellitus (ICD-10 - E11.65) Reviewed home glucose levels. They are acceptable. Continue present meds. Nov,Essential hypertension (ICD-10 - I10)Reviewed home BPs. They are moderately elevated but should improve with treatment of his INGRID. Will monitor and continue present meds. [employer] Other Evaluation note Note Date & TypeNoteFacilityEvaluation noteNo InformationNort scenios Other Evaluation note Note Date & TypeNoteFacilityEvaluation note* Diagnosis Onset Date Resolution Status Admit Date Dysphagia inactiveJanuary 2024 1:26pm [facility] Work Phone: History general Narrative - Reported Note Date & TypeNoteFacilityHistory general Narrative - Reported* Type Description Date Medical History Body mass index [BMI] 45.0-49.9, adult Medical HistoryAbnormal stress testMedical HistoryType 2 diabetes mellitus Medical HistoryEssential hypertensionMedical HistoryChest painMedical History Screening for hyperlipidemiaMedical HistoryHyperglycemia due to type 2 diabetes mellitusSurgical HistoryTUBULAR ADENOMA - C- [id number] HistoryRIGHT SHOULDER ARTHROSCOPIC ROTATOR CUFF CMIPID3946Rmchcgjtocjzwoe HistorySEE SURGICAL HX [employer] Other Summary Purpose Family History Relationship Condition Age at Onset Recorded Date/T vaishali brother Malignant neoplasm of colon Unknown sisterMalignant neoplasm of kidneyUnknownfatherDiabetes mellitusUnknownmother Diabetes mellitusUnknownfatherDeceasedUnknown Advance Directives Advance Directive Response Recorded Date/ [...] sarah maldonado pt September 26, 2024 1:26pm Wellness November 25, 2024 3:2 7pm Reason for Visit Admit Date GERD (gastroesophageal reflux disease) J anuary 2024 1:26pm Benign esophageal stricture September 26, 2024 1:26pm Family history of colon cancer September 262024 1:26pm GERD (gastroesophageal reflux disease) M 2024 3:27pm Hypertension November 25, 2024 3:2 7pm Screening PSA (prostate specific antigen ) November 25, 2024 3:27pm Type 2 diabetes mellitus with hyperglyce howard November 25, 2024 3:27pm Wellness examination November 25, 2024 3: 27pm Additional Source Comments (unrecognized sect ion and content) No Status Records FoundNo Status Records Found INFORMATION SOURCE (unrecogn ized section and content) DATE CREATED AUTHOR 07/20/2021 [facility] DATE CREATED AUTHOR AUTHOR'S ORGANIZ ATION 01/01/2023 [facility] REASON FOR VISIT (unrecogniz ed section and content) sleep study referralClinical Patient here for follow up gerdrefilllabs3 month Follow up Care Teams (unrecognized sec tion and content) Team Status: Active Member Role Status Dates Anahy Aguirre MD Primary Care Provider Active Team Status: Inactive Member Role Status Dates Anahy Aguirre MD Primary Care Provider Active Start: September 26, 2024 End: September 26yulia Jacobson , DOAttending ProviderActiveStart: September 26, 2024 End: September 26, 2024 [...] BE BASED ON THE PRIMARY CLINICAL RECORDS. [employer] provides no warranty or guarantee of the accuracy or completeness of information in this document.
== END 2025-07-16 16:18 | disposition home or self-care (01) ==
LOC: FHNEUROLOG 16:18
PROVIDERS: PCP Family Medicine; Visit Provider Psychiatry & Neurology Neurology
DX: G47.33 Obstructive sleep apnea (adult) (pediatric) (principal); G47.10 Hypersomnia, unspecified; R06.83 Snoring
CPT/HCPCS: G0463